=== PATIENT | female | born 1960 | race Two or more races ===

== ENCOUNTER → 2016-11-28 | Outpatient (REF) | payer OTHER | END | disposition home or self-care (01) | LOC: M SFHCWAGY 11:04 | PROVIDERS: ATTEND Nurse Practitioner Family | DX: Z12.4 Encounter for screening for malignant neoplasm of cervix (principal) ==

== ENCOUNTER → 2016-11-28 | Outpatient (CLI) | payer BC ==
--- NOTE | 2016-11-28 11:40 | REPMRS ---
Patient History The patient states she had a clinical breast exam in Patient is postmenopausal. No known family history of cancer. Took hormonal contraceptives for 10 years. Digital Woman Screen Mammo: November 28, 2016 - Exam #: [id number] Bilateral CC and MLO view(s) were taken. Technologist: Carmen Dunn, Technologist Prior study comparison: January 16, 2014, bilateral bilat screen digital mammo, performed at [facility] ([facility]). December 27, 2012, bilateral bilat screen digital mammo, performed at [facility] ([facility]). December 25, 2011, bilateral bilat screen digital mammo, performed at [facility] ([facility]). FINDINGS: The breast tissue is almost entirely fat. There has been no change in the appearance of the mammogram from the prior studies. There is no interval development of dominant mass, architectural distortion, or clustered microcalcification typical of malignancy. ASSESSMENT: BI-RADS/ACR category 1 mammogram. Negative. Recommendation Routine screening mammogram of both breasts in 1 year (for women over age 40). This mammogram was interpreted with the aid of an FDA-approved computer-aided dectection system. Electronically Signed By: Christophe Mcdonnell MD 11/28/16 2936
== END | disposition home or self-care (01) ==
LOC: M WHC 10:44
PROVIDERS: ATTEND Nurse Practitioner Family
DX: Z12.31 Encounter for screening mammogram for malignant neoplasm of breast (principal); Z78.0 Asymptomatic menopausal state; Z92.0 Personal history of contraception

== ENCOUNTER → 2018-01-21 | Outpatient (REF) | payer OTHER ==
[2018-01-26 14:18] LABS: HPV HYBRID CAPTURE II Negative (Negative)
== END ==
LOC: M SFHCWAGY 10:54
DX: Z12.4 Encounter for screening for malignant neoplasm of cervix (principal); N95.8 Other specified menopausal and perimenopausal disorders
CPT/HCPCS: G0123

== ENCOUNTER → 2018-01-21 | Outpatient (CLI) | payer BC | LOC: M WHC 10:30 | DX: Z12.31 Encounter for screening mammogram for malignant neoplasm of breast (principal); Z78.0 Asymptomatic menopausal state | CPT/HCPCS: 77067 ==

== ENCOUNTER → 2019-01-24 | Outpatient (CLI) | payer BC ==
--- NOTE | 2019-01-24 12:20 | REPMRS ---
Patient History The patient states she had a clinical breast exam in 01/2019. No known family history of cancer. Took hormonal contraceptives for 10 years. 3D TOMOSYNTHESIS WAS PERFORMED. Digital Woman Screen Mammo: January 24, 2019 - Exam #: [id number] Bilateral CC and MLO view(s) were taken. Technologist: Padmini Bennett, Technologist Prior study comparison: January 21, 2018, digital woman screen mammo performed at [facility] [employer] [facility]. November 28, 2016, digital woman screen mammo performed at [facility] [employer] [facility]. FINDINGS: There are scattered fibroglandular densities. There has been no change in the appearance of the mammogram from the prior studies. There is a mild amount of residual fibroglandular tissue which is fairly symmetric. There is no interval development of dominant mass, architectural distortion, or clustered microcalcification suggestive of malignancy. Assessment: BI-RADS/ACR category 1 mammogram. Negative Mammogram. Recommendation Routine screening mammogram in 1 year (for women over age 40). This mammogram was interpreted with the aid of an FDA-approved computer-aided dectection system. Electronically Signed By: Hernan Eaton MD 01/24/19 [id number]
== END ==
LOC: M WHC 10:32
PROVIDERS: ATTEND Nurse Practitioner Family
DX: Z12.31 Encounter for screening mammogram for malignant neoplasm of breast (principal)

== ENCOUNTER → 2020-04-05 | Outpatient (CLI) | payer BC ==
--- NOTE | 2020-04-05 14:22 | REP ---
BILATERAL MAMMOGRAM WITH 3D TOMOSYNTHESIS, DIAGNOSTIC MAMMOGRAM RIGHT BREAST AND RIGHT BREAST ULTRASOUND: CLINICAL HISTORY: Palpable lump right upper outer quadrant right breast. No family history of breast cancer. Tyrer-Cuzick lifetime risk of breast cancer 7.8%. COMPARISON: Comparison is made with the prior study of 01/24/2019 as well as other prior exams. Palpable lump is marked on the skin of the right breast. MLO and CC views are performed bilaterally with 3D tomosynthesis. Additional spot compression views of the upper outer quadrant of the right breast are performed. Volpara breast density is B. There is mild scattered fibroglandular tissue which appears unchanged. There is no evidence of mass or architectural distortion. No clustered microcalcifications are seen. Real-time sonographic evaluation of the upper outer quadrant of the right breast are performed at the site of the reported palpable lump. No cystic or solid nodular is seen at that location. IMPRESSION: BIRADS 1: BI-RADS/ACR category 1 mammogram. Negative Mammogram. ACR 1 negative mammogram. No mass or clustered microcalcifications. There is no mammographic or sonographic evidence of a mass at the site of a reported palpable lump upper outer quadrant right breast. A negative mammogram and ultrasound should not deter biopsy if there is a clinically suspicious palpable mass present. Clinical correlation and followup recommended. Recommend followup mammogram in 1 year. This mammogram was interpreted with the aid of an FDA-approved computer-aided detection system. A. Negative x-ray reports should not delay biopsy if a dominant or clinically suspicious mass is present. B. Four to eight percent of cancers are not identified by x-ray. C. Adenosis and dense breasts may obscure an underlying neoplasm. The patient states she/he had a clinical breast exam in March 2020. The patient letter being requested is M2 ?
== END ==
LOC: M WHC 10:54
PROVIDERS: ATTEND Nurse Practitioner Family
DX: N63.10 Unspecified lump in the right breast, unspecified quadrant (principal)
CPT/HCPCS: 76642; 77066; G0279

== ENCOUNTER → 2021-04-09 | Outpatient (CLI) | payer BC, OTHER ==
--- NOTE | 2021-04-09 12:36 | REPMRS ---
Patient History The patient states she had a clinical breast exam in March 2021. No known family history of cancer. Took hormonal contraceptives for 10 years. Tomosynthesis is performed. Volpara breast density is b. [facility] lifetime risk of breast cancer 7.6%. Patient states no breast complaints today. Patient has signed MRS History Sheet. Digital Woman Screen Mammo: April 09, 2021 - Exam #: [id number] Bilateral CC and MLO view(s) were taken. Technologist: Samantha Hernandez Technologist Prior study comparison: April 05, 2020, diagnostic bilateral mammo performed at [facility]. January 24, 2019, bilateral digital woman screen mammo performed at [facility]. FINDINGS: There are scattered fibroglandular densities. There has been no change in the appearance of the mammogram from the prior studies. There is a mild amount of residual fibroglandular tissue which is fairly symmetric. There is no interval development of dominant mass, architectural distortion, or clustered microcalcification suggestive of malignancy. Assessment: BI-RADS/ACR category 1 mammogram. Negative Mammogram. Recommendation Routine screening mammogram in 1 year (for women over age 40). This mammogram was interpreted with the aid of an FDA-approved computer-aided dectection system. Electronically Signed By: Hernan Eaton MD 04/09/21 [id number]
== END ==
LOC: M WHC 10:45
PROVIDERS: ATTEND Obstetrics & Gynecology
DX: Z12.31 Encounter for screening mammogram for malignant neoplasm of breast (principal)

== ENCOUNTER → 2021-04-09 | Outpatient (REF) | payer OTHER | LOC: M SFHCWAGY 17:18 | PROVIDERS: ATTEND Obstetrics & Gynecology | DX: Z12.4 Encounter for screening for malignant neoplasm of cervix (principal) ==

== ENCOUNTER → 2021-05-27 | Outpatient (CLI) | payer BC, OTHER ==
--- NOTE | 2021-05-27 14:34 | REP ---
INDICATION: PAIN IN RIGHT KNEE. COMPARISON: None. TECHNIQUE: Standing AP view bilateral knees, lateral and sunrise views right knee. FINDINGS: There is no acute fracture or dislocation. Moderately severe medial joint space narrowing is noted bilaterally with mild subchondral sclerosis and spurring. There is severe lateral patellofemoral compartment narrowing on the right with subchondral sclerosis and moderate spurring at the lateral margin of the patellofemoral joint. There is a moderate-sized spur of the superior pole of the patella. Heterogeneous oval soft tissue calcification is seen posterior to the distal femur with another smaller heterogeneous soft tissue calcification in the posterior superior lower leg soft tissues. A rounded calcification projects in the region of the right central knee joint. This may represent a joint body, measuring 8 mm in diameter. IMPRESSION: Degenerative changes as discussed above with suspected calcific joint body on the right. <Electronically signed by Hernan Eaton > 05/27/21 [id number]
== END ==
LOC: M SOG 12:42
PROVIDERS: ATTEND Orthopaedic Surgery Adult Reconstructive Orthopaedic Surgery
DX: M25.561 Pain in right knee (principal)

== ENCOUNTER → 2022-07-14 | Outpatient (CLI) | payer BC, OTHER | LOC: M WHC 10:01 | PROVIDERS: ATTEND Nurse Practitioner Family | DX: Z12.31 Encounter for screening mammogram for malignant neoplasm of breast (principal) ==

== ENCOUNTER → 2023-05-29 | Outpatient (CLI) | payer MEDICARE, BC, OTHER ==
[2023-05-29 12:10] LABS: BASO % 0.5 % (0.0-1.0); EOS # 0.1 10^3/uL (0.0-0.5); EOS % 1.5 % (0.0-3.0); HEMATOCRIT 38.8 % (36.0-47.0); HEMOGLOBIN 12.8 g/dl (12.0-15.5); LYMPH # 3.2 10^3/uL (1.5-5.0); LYMPH % 53.2 % (24.0-44.0); MEAN CORPUSCULAR HEMOGLOBIN 32.8 pg (27.0-33.0); MEAN CORPUSCULAR VOLUME 99.5 fl (80.0-96.0); MONO # 0.6 10^3/uL (0.0-0.8); MONO % 9.7 % (2.0-8.0); NEUTROPHILS # 2.1 10^3/uL (1.5-8.5); NEUTROPHILS % 34.6 % (36.0-66.0); PLATELET COUNT, AUTOMATED 332 10^3/uL (150-450)
[2023-05-29 12:35] LABS: ALKALINE PHOSPHATASE 79 U/L (46-116); ALT/SGPT 28 U/L (7.0-40); AST/SGOT 19 U/L (<34); BILIRUBIN,TOTAL 0.7 MG/DL (0.3-1.2); BLOOD UREA NITROGEN 11 MG/DL (9-23); CALCIUM LEVEL 9.7 MG/DL (8.3-10.6); CARBON DIOXIDE LEVEL 28 MMOL/L (20-31); CHLORIDE LEVEL 104 MMOL/L (98-107); CHOLESTEROL LEVEL 259 MG/DL (<200); CHOLESTEROL RISK RATIO 3.85 (<5); CREATININE FOR GFR 0.73 MG/DL (0.55-1.30); GLOMERULAR FILTRATION RATE > 60.0 (>45); GLUCOSE, FASTING 98 MG/DL (74-106); HDL CHOLESTEROL 67.2 MG/DL (>40); NON-HDL-C 191.8 MG/DL; POTASSIUM SERUM 4.1 MMOL/L (3.5-5.1); SODIUM LEVEL 139 MMOL/L (136-145); TOTAL PROTEIN 7.2 G/DL (5.7-8.2); TRIGLYCERIDES LEVEL 134 MG/DL (<150)
[2023-05-29 12:37] LABS: THYROID STIMULATING HORMONE 2.316 uIU/ML (0.55-4.78)
== END ==
LOC: M WUC 09:13
PROVIDERS: ATTEND Family Medicine
DX: Z00.00 Encounter for general adult medical examination without abnormal findings (principal); L98.9 Disorder of the skin and subcutaneous tissue, unspecified; R03.0 Elevated blood-pressure reading, without diagnosis of hypertension; R00.2 Palpitations; E78.00 Pure hypercholesterolemia, unspecified

== ENCOUNTER → 2023-11-23 | Outpatient (REF) | payer MEDICARE, BC, OTHER | LOC: M LAB REF 18:22 | PROVIDERS: ATTEND Surgery | DX: C44.519 Basal cell carcinoma of skin of other part of trunk (principal); L57.8 Other skin changes due to chronic exposure to nonionizing radiation ==

== ENCOUNTER → 2024-07-22 | Outpatient (CLI) | payer MEDICARE, BC | LOC: M WHC 11:30 | PROVIDERS: ATTEND Family Medicine | DX: Z12.31 Encounter for screening mammogram for malignant neoplasm of breast (principal) ==

== ENCOUNTER → 2025-05-29 | Outpatient (CLI) | payer MEDICARE, BC ==
[2025-05-29 12:14] LABS: BASO # 0.0 10^3/uL (0.0-0.2); BASO % 0.5 % (0.0-1.0); EOS # 0.1 10^3/uL (0.0-0.5); EOS % 1.4 % (0.0-3.0); LYMPH # 2.9 10^3/uL (1.5-5.0); LYMPH % 43.5 % (24.0-44.0); MONO # 0.6 10^3/uL (0.0-0.8); MONO % 9.5 % (2.0-8.0); NEUTROPHILS # 3.0 10^3/uL (1.5-8.5); NEUTROPHILS % 44.8 % (36.0-66.0); PLATELET COUNT, AUTOMATED 316 10^3/uL (150-450)
[2025-05-29 12:41] LABS: ALT/SGPT 24 U/L (7.0-40); AST/SGOT 24 U/L (<34); CALCIUM LEVEL 10.0 MG/DL (8.3-10.6); CARBON DIOXIDE LEVEL 28 MMOL/L (20-31); CHLORIDE LEVEL 101 MMOL/L (98-107); CHOLESTEROL LEVEL 319 MG/DL (<200); CHOLESTEROL RISK RATIO 4.36 (<5); CREATININE FOR GFR 0.71 MG/DL (0.55-1.30); GLOMERULAR FILTRATION RATE > 90.0 (>45); LDL CHOLESTEROL 214.9 MG/DL (<100); NON-HDL-C 245.9 MG/DL; POTASSIUM SERUM 4.3 MMOL/L (3.5-5.1); SODIUM LEVEL 139 MMOL/L (136-145); TRIGLYCERIDES LEVEL 155 MG/DL (<150)
== END ==
LOC: M WUC 09:19
PROVIDERS: ATTEND Family Medicine
DX: Z00.00 Encounter for general adult medical examination without abnormal findings (principal); N81.11 Cystocele, midline; Z12.39 Encounter for other screening for malignant neoplasm of breast; R00.2 Palpitations; Z13.6 Encounter for screening for cardiovascular disorders

== ENCOUNTER → 2025-07-27 | Outpatient (REF) | payer MEDICARE, BC ==
[2025-07-29 13:18] LABS: HPV APTIMA Not Detected (Not Detected)
== END ==
LOC: M PLALAB 13:54
PROVIDERS: ATTEND Student in an Organized Health Care Education/Training Program
DX: Z12.4 Encounter for screening for malignant neoplasm of cervix (principal)
CPT/HCPCS: 87624; G0123

== ENCOUNTER → 2025-07-27 | Outpatient (CLI) | payer MEDICARE, BC | LOC: M WHC 13:37 | PROVIDERS: ATTEND Family Medicine | DX: Z12.31 Encounter for screening mammogram for malignant neoplasm of breast (principal) ==